=== PATIENT | male | born 1940 | race Caucasian/White ===

== ENCOUNTER 2019-05-07 17:48 | Inpatient (IN) ==
[2019-05-07 19:34] LABS: BASO# 0.04 X1000 (0.0-0.2); BASO% 0.2 % (0.0-0.8); EOS# 0.05 X1000 (0.0-0.7); EOS% 0.3 % (0.0-10.0); HEMATOCRIT 33.1 % (42.0-52.0); HEMOGLOBIN 10.4 g/dL (14.0-18.0); IMM GRAN# 0.17 X1000 (0.0-0.04); IMM GRAN% 1.1 % (0.0-0.5); LYMPH# 0.78 X1000 (1.2-3.4); LYMPH% 4.8 % (20.5-51.1); MCH 29.2 PG (27-31); MCHC 31.4 g/dL (33-37); MONO# 2.37 X1000 (0.11-0.59); MONO% 14.7 % (1.7-9.3); NEUT# 12.76 X1000 (1.4-6.5); NEUT% 78.9 % (42.2-75.2); PLT 117 X1000 (130-400); RBC 3.56 XMIL (4.7-6.1); RDW 15.2 % (11.5-14.5); WBC 16.17 X1000 (4.8-10.8)
[2019-05-07 20:16] LABS: ALBUMIN 3.7 g/dL (3.5-5.0); CREATININE 3.5 mg/dL (0.7-1.2); POTASSIUM 6.8 mmol/L (3.5-5.1); TOTAL BILIRUBIN 0.5 mg/dL (0.20-1.00); TOTAL PROTEIN 6.8 g/dL (6.3-8.3)
[2019-05-07] MEDS ORDERED: ALBUTEROL 0.5% INH CONC FOR HYPERKALEMIA INH ONE (20:36)
[2019-05-07] MEDS ORDERED: LACTULOSE PO ONE (20:37)
[2019-05-07] MEDS ORDERED: D50W 500 ML IV SCH (22:15)
[2019-05-07] MEDS ORDERED: HUMULIN R IV ONE (22:15)
[2019-05-07] MEDS ORDERED: D50W SYRINGE IV ONE (22:35)
[2019-05-07] MEDS ORDERED: HUMULIN R (PARKWAY) ONE (22:37)
[2019-05-08] MEDS ORDERED: TYLENOL PO PRN (00:36)
[2019-05-08] MEDS ORDERED: ZOFRAN IV PRN (00:36)
[2019-05-08] MEDS ORDERED: SODIUM BICARBONATE 8.4% 100 MEQ in D5W 1,000 ML IV SCH (00:45)
--- NOTE | 2019-05-08 00:48 | EKG Report ---
Test Performed on : 05/07/2019 9:31:23 PM Test Reason : emboli Blood Pressure : / mmHG Vent. Rate : 101 BPM Atrial Rate : 101 BPM P-R Int : 184 ms QRS Dur : 184 ms QT Int : 390 ms P-R-T Axes : 044 252 048 degrees QTc Int : 505 ms Sinus tachycardia. Right bundle branch block , plus right ventricular hypertrophy Septal infarct , age undetermined Abnormal ECG When compared with ECG of 02-DEC-2018 12:28, Vent. rate has increased BY 38 BPM Septal infarct is now present T wave inversion no longer evident in Lateral leads Unconfirmed Result
[2019-05-08 01:38] LABS: CALCIUM 8.9 mg/dL (8.8-10.2); CREATININE 3.7 mg/dL (0.7-1.2); POTASSIUM 5.9 mmol/L (3.5-5.1)
[2019-05-08 01:51] LABS: MAGNESIUM 2.6 mg/dL (1.5-2.7)
--- NOTE | 2019-05-08 01:55 | HISTORY AND PHYSICAL ---
REASON FOR ADMISSION: Abnormal labs. HISTORY OF PRESENT ILLNESS: Mr. Kevin Tinajero is a 79-year-old male with past medical history of coronary artery disease status post stent, hypertension, type 2 diabetes, hypothyroidism, who had some lab work done by Dr. Jordan a few days ago and it was noticeably abnormal. Based on that and the fact that Dr. Jordan was working in the ER, he told the patient to come to the ER so they could recheck his labs. When he did check his labs, he noticed that the patient's potassium was 6.8 and his creatinine had gone up from 2.1 at least to 3.5 with some mild leukocytosis. The patient admits to having poor oral intake of food and liquids for several months, culminating in a weight loss of 36 pounds. He denies any vomiting, diarrhea or blood loss. His urine output has not appreciably declined. He denies any hematuria or any other genitourinary complaints. Also of note, the patient is a very poor historian, so it was very difficult getting a very coherent history. I had to get some of the information from his nurse. The patient denies any cardiorespiratory complaints, but says he has been feeling weak. No PND, orthopnea. No increased leg swelling or abdominal distention. REVIEW OF SYSTEMS: Twelve system review was done. Positive findings per HPI. He denies any over- the-counter medication use. HOME MEDICATIONS: Include lisinopril 40 mg at bedtime, Tylenol #3, aspirin 81 mg daily, Coreg 3.125 mg b.i.d., Lantus 25 units q.a.m., levothyroxine 100 mcg q.a.m., sublingual nitroglycerin p.r.n., torsemide 10 mg 3 times a day, NovoLog as directed. SURGICAL HISTORY: Coronary artery stent placement and basal cell cancer excision from his nose. He denies any other surgery. FAMILY HISTORY: Notable for type 2 diabetes and hypertension, but no kidney disease. SOCIAL HISTORY: Does not smoke, drink, or use drugs. , lives with . LABORATORY WORK: White count 6,000, hemoglobin and hematocrit of 10 and 33, platelets 117,000, with 80% neutrophils, potassium 6.8, bicarb 21, anion gap is 10, BUN 56, creatinine 3.5. Glucose 119. Urinalysis is pending. Chest film is pending. EKG shows what appears to be a right bundle branch block with first-degree AV block. Sinus rhythm. No peaking of the T-waves or electrical activity consistent with hyperkalemia. PHYSICAL EXAMINATION: VITAL SIGNS: Blood pressure 159/60, heart rate 83, respirations 20, temperature is 97.7 degrees. He is 96% on room air. GENERAL:: Obese, elderly man, not in acute distress. He is alert and oriented to person, place, and time with some prompting because he is transiently confused intermittently. HEENT: Head is normocephalic, atraumatic. Eyes: INGA, EOMI. Intact, not pale. ENT: Dry oral mucosa. There is no cyanosis. No oropharyngeal exudates or erythema. NECK: Supple. No JVD or carotid bruit. No thyromegaly. The patient has mild decreased skin turgor. CHEST: Few bibasilar crepitations. Decreased air entry in the bases. No wheezes. CARDIOVASCULAR: A 3/6 ejection systolic murmur. No gallops. Rhythm is regular. ABDOMEN: Positive truncal obesity with no focal areas of tenderness. Bowel sounds are normal. RECTAL: Deferred. EXTREMITIES: The patient has 1+ pitting edema. No clubbing or peripheral cyanosis, has good distal pulse volumes which are regular and symmetrical. NEUROLOGICAL: Patient has tremors of his hands, but no gross focal deficits. SKIN: Intact. No breakdown lesion, erythema. MUSCULOSKELETAL: Grossly normal. ASSESSMENT: 1. Acute on chronic kidney failure, probably secondary to use of angiotensin-converting enzyme inhibitors or poor oral intake. Cannot rule out post obstructive etiologies. 2. Leukocytosis. Could be reactive leukocytosis versus occult urinary tract infection. Chest film and urinalysis pending. 3. Type 2 diabetes. 4. Mild metabolic encephalopathy. 5. Coronary artery disease. 6. Hypothyroidism. 7. Anemia, probably related to kidney disease. PLAN: Will consult Dr. Couch to follow and monitor patient. Retroperitoneal ultrasound was ordered to rule out obstructive uropathy. For now, we will just start patient on bicarb drip primarily to correct persistent hyperkalemia. We avoid any potentially nephrotoxic medication. Anemia workup has been ordered and will be followed. Await urinalysis, and chest films to rule out infective etiology. Withhold antibiotics for now. Follow daily labs and monitor fluid intake accordingly. cc: MD Yury Moeller MD
[2019-05-08] MEDS: HEPARIN SUBQ SCH ×2 (02:14→12:15)
[2019-05-08] MEDS: SODIUM BICARBONATE 8.4% 100 MEQ in D5W 1,000 ML IV SCH ×2 (06:51→17:36)
[2019-05-08] MEDS: SYNTHROID PO SCH (06:51)
[2019-05-08 09:05] LABS: UR CREAT RANDOM 129.4 mg/dL (14-26); UR PROT RANDOM 65.3 mg/dL
[2019-05-08 09:40] LABS: CALCIUM 8.1 mg/dL (8.8-10.2); CREATININE 3.5 mg/dL (0.7-1.2)
[2019-05-08 09:47] LABS: POTASSIUM 6.2 mmol/L (3.5-5.1)
[2019-05-08] MEDS ORDERED: HUMULIN R IV ONE (09:50)
[2019-05-08] MEDS ORDERED: ALBUTEROL 0.5% INH CONC FOR HYPERKALEMIA INH ONE (09:50)
[2019-05-08] MEDS ORDERED: D50W SYRINGE IV ONE (09:51)
[2019-05-08] MEDS: COREG PO SCH ×2 (09:52→20:31)
[2019-05-08] MEDS: ASPIRIN EC PO SCH (09:52)
[2019-05-08] MEDS: LANTUS INSULIN SUBQ SCH (09:53)
[2019-05-08] MEDS ORDERED: LOKELMA POWDER PACKET PO STA (10:23)
[2019-05-08] MEDS ORDERED: CALCIUM GLUCONATE 4.65 MEQ in NS 100 ML IV ONE (11:00)
--- NOTE | 2019-05-08 11:02 | Diag Imaging Result Doc PS360 ---
EXAM: CHEST-2 VIEWS 05/08/2019 HISTORY: leukocytosis dyspnea TECHNIQUE: PA and lateral chest COMMENT: There is no evidence of acute cardiac or pulmonary disease. Compared to 11/30/2018 there has been no significant change in the appearance of the chest. IMPRESSION: No acute disease. Electronically signed by John Jacobson 05/08/2019 10:59 AM
--- NOTE | 2019-05-08 11:24 | Diag Imaging Result Doc PS360 ---
EXAM: US RENAL 2 (RETROPER) COMPLETE INDICATION: PIERCE TECHNIQUE: COMPARISON: None. FINDINGS: The renal echotexture is somewhat increased, which is a nonspecific indicator of medical renal disease. There is a 4.8 cm cyst at the periphery of the right kidney. No solid renal mass is appreciated. The right kidney measures 9.9 cm and the left kidney measures 10.6 cm in the greatest longitudinal axes. Right renal cortex measures 0.6 cm and the left renal cortex measures 0.8 cm in thickness. The urinary bladder is largely nondistended and is grossly unremarkable, otherwise. IMPRESSION: 1.Mildly increased renal echotexture, which is a nonspecific indicator of medical renal disease. 2.Cystic appearing focus associated with the right renal cortex. Electronically signed by Gelacio Nash 05/08/2019 11:22 AM
--- NOTE | 2019-05-08 11:33 | EKG Report ---
Test Performed on : 05/08/2019 11:18:32 AM Test Reason : Hyperkalemia Blood Pressure : / mmHG Vent. Rate : 074 BPM Atrial Rate : 074 BPM P-R Int : 194 ms QRS Dur : 174 ms QT Int : 442 ms P-R-T Axes : -24 -89 076 degrees QTc Int : 490 ms Normal sinus rhythm. Left axis deviation Right bundle branch block Septal infarct (cited on or before 29-NOV-2018) Abnormal ECG When compared with ECG of 07-MAY-2019 21:31, (Unconfirmed) No significant change was found Unconfirmed Result
--- NOTE | 2019-05-08 15:06 | Diag Imaging Result Doc PS360 ---
EXAM: CT ABDOMEN/PELVIS W/O CONTRAST 05/08/2019 HISTORY: abnormal creatinine TECHNIQUE: This exam was performed using automated exposure control, adjustment of mA or kV according to patient size, and/or use of iterative reconstruction technique. COMMENT: The current study is compared with 07/26/2015. There are mild atelectatic changes present in the lower lobes posteriorly. There are small pleural effusions bilaterally which were not previously present. There are no apparent gallstones. The spleen and adrenal glands are not enlarged. The pancreas is slightly atrophic in appearance. The right renal pelvis is somewhat prominent, but this was also the case previously. There is hydronephrosis on the left which was not the case previously. There is bilateral nephrolithiasis with a stone on the right in the mid collecting system measuring over 16 mm. There is a 3 mm calculus in the lower pole on the left. There is an apparent cyst in the anterior right kidney measuring 2.4 cm in diameter. There is some stranding around the renal pelvis and ureter on the left. There is no evidence of ureteral stones however there are a number of small stones in the 2 to 3 mm size range layering dependently in the urinary bladder. This was not the case on the previous study.There are degenerative changes in the hips particularly the left hip and the sacroiliac joints. There is severe facet arthropathy on the right at the L5-S1 level and to a lesser extent on the left at L4-5. There is apparent spinal stenosis at the L3-4 level. No acute bony abnormalities are present. IMPRESSION: Left hydronephrosis. The possibility of a recently passed stone or stones on the left is suggested. Bilateral nephrolithiasis. Bibasilar atelectasis and effusions. Other nonacute findings as described above. Electronically signed by John Jacobson 05/08/2019 3:04 PM
--- NOTE | 2019-05-08 15:13 | PROVIDER PROGRESS NOTE ---
Progress Note Chief complaint: my back was hurting so I went to the doctor and had bad labs. HPI: Mr. Tinajero is A 79-year-old white male with a past medical history of coronary artery disease status post stent, hypertension, type two diabetes, kidney stones, and hypothyroidism. He started having a loss of appetite six months ago with a 35lb weight loss and has had general malaise for the past few weeks. He presented to an urgent care a few days ago with complaints of back pain thinking it might be another kidney stone. They started him on Augmentin tablets for complaints of burning on urination and trace blood in the urine. They called back yesterday with lab results that had a potassium of 6.8 and a creatinine of 2.1 which is around his baseline. He came to the emergency department for evaluation and has been admitted. His Creatinine today is 3.5. His white blood cell count is 16. He denies fever, chills, shortness of breath, nausea and vomiting, or chest pain. Past medical history: kidney stones, coronary artery disease status post stance, hypertension, type two diabetes, hypothyroidism, recent 35 pound weight loss. Past surgical history: coronary stent placement. Social history: lives at home with his . He is retired. He denies any tobacco, alcohol, or illicit drug use. Family history: positive for type two diabetes and hypertension. Allergies: toradol, levaquin, sulfa, z-pac, erythromycin base, Benadryl Home medications: Tylenol with codeine #3, aspirin, carvedilol, NovoLog, Lantus, levothyroxine, lisinopril, nitroglycerin, torsemide. Review of systems: neurological: denies altered mental status or loss of consciousness. Denies confusion. Eyes: denies blurriness, dryness, or change in visual acuity. ENT: denies tinnitus or change in hearing. Integumentary denies color change, rash, itching. Respiratory: denies shortness of breath or productive cough. Denies orthopnea. Cardiovascular: denies chest pain or palpitations. G.I.: denies nausea, vomiting, constipation, admits to weight loss from decreased appetite. : denies change in urine frequency or color. Admits to burning sensation. Endocrine: Denies excessive thirst and hunger. Musculoskeletal: denies increased weakness or extremity pain. Admits to lower back pain. Labs: WBC 16.17, hemoglobin 10.4, hematocrit 33.1, platelet count 117, sodium 132, potassium 6.2, chloride 102, carbon dioxide 19, anion gap 11, BUN 55, creatinine 3.5. urine studies: random creatinine 129.4, random proteins 65.3, random sodium 63. Intake 240, output one void not measured. Imaging: chest x-ray and pressure no acute disease. Renal ultrasound completed but pending. Physical exam: vitals. Temperature 98.2, pulse 82, respirations 19, blood pressure 121/54, 02 sat 93% on room air. General: obese elderly white male lying in bed in no acute distress. HEENT: atraumatic, normocephalic. Pupils equal and reactive, mucous membranes moist. Trachea midline. Skin: warm and dry. Neck: Supple, 8 cm JVD appreciated. Cardiovascular: S1,S2, S3, no murmur. Respiratory: clear bilaterally with diminished bases. Abdomen: obese, soft, nondistended, tender under umbilicus. Bowel sounds present. : non inspected. Extremities: Trace edema to bilateral lower extremities. Neurologic: alert, oriented to person and place. Assessment and plan: Acute on chronic kidney disease. FeNa score 1.29%. We will continue fluids, strict I/O, obtain renal imaging, and continue to monitor labs. Hyperkalemia. Treated by primary. Leukocytosis. Blood and urine cultures ordered. Abdominal tenderness. Will order an abdominal/pelvic CT.
[2019-05-08] MEDS: HUMALOG SUBQ SCH ×2 (17:36→20:32)
[2019-05-08] MEDS: LOKELMA POWDER PACKET PO SCH (17:37)
--- NOTE | 2019-05-08 18:49 | PROGRESS NOTE ---
DATE: 05/08/2019 SUBJECTIVE: This patient is resting comfortably in bed. He is not complaining of any specific pain at this moment. His potassium level was high again today in the morning, and I treated. I will repeat again the potassium in the afternoon. Nephrology department has been consulted for an acute on chronic kidney disease. OBJECTIVE: Vital Signs: Temperature 97.2 degrees, pulse 87, respiratory rate 18, blood pressure 122/49, oxygen saturation 95% on room air. HEENT: Head normocephalic, no trauma, PERRLA. Neck: Supple. No JVD. No masses. Central trachea. Chest: Clear to auscultation. No wheezing. No rales. Some crepitus at the bases. Abdomen: Soft, nontender, nondistended. No hepatosplenomegaly. Cardiovascular: Regular rhythm and rate. Systolic murmur. Extremities: 1+ pitting edema. No clubbing. No cyanosis. Neurological: This patient has some hand tremors, no focal deficits. He is answering my questions. LABORATORY DATA: Sodium 132, potassium 6.2, chloride 102, bicarbonate 19, BUN 55, creatinine 3.5, glucose 252, calcium 8.1. ASSESSMENT AND PLAN: 1. Acute on chronic kidney disease. We will stop all the nephrotoxic medications, Nephrology Department on board. We will follow their recommendations. 2. Leukocytosis. I do not have any source of infection. The urine culture has not been collected. We also requested a CT of the abdomen and pelvis. 3. Hyperkalemia. He has been treated. I will recheck his potassium in the afternoon. 4. Type 2 diabetes, stable. Continue with same management. 5. Possible mild metabolic encephalopathy. I do not have any family members at the bedside, but he is answering all my questions. 6. History of coronary artery disease. Aware. No chest pain. 7. Hypothyroidism. Continue with same management. 8. Anemia likely due to chronic kidney disease. cc: Kurt Lacy MD
[2019-05-08 21:27] LABS: URINE SOURCE CLEAN CATCH
[2019-05-08 21:31] LABS: BILIRUBIN URINE NEGATIVE (NEGATIVE); BLOOD URINE MODERATE (NEGATIVE); COLOR YELLOW; GLUCOSE URINE NEGATIVE (NEGATIVE); KETONE URINE NEGATIVE (NEGATIVE); LEUKOCYTES URINE MODERATE (NEGATIVE); NITRITE URINE NEGATIVE (NEGATIVE); PH URINE 5.5; PROTEIN URINE 50 mg/dL (NEGATIVE); SP GRAVITY URINE 1.015; TURBIDITY URINE HAZY (CLEAR); UR EPITHELIAL CELLS <10 /HPF (<10); URINE BACTERIA NEGATIVE /HPF; URINE WBC TNTC /HPF (<10); UROBILINOGEN URINE NORMAL (NORMAL)
[2019-05-09] MEDS: SYNTHROID PO SCH (06:22)
[2019-05-09] MEDS: HEPARIN SUBQ SCH ×2 (06:25→18:22)
[2019-05-09] MEDS: HUMALOG SUBQ SCH ×4 (07:42→21:28)
[2019-05-09 08:01] LABS: BASO# 0.02 X1000 (0.0-0.2); BASO% 0.2 % (0.0-0.8); EOS# 0.21 X1000 (0.0-0.7); HEMATOCRIT 30.1 % (42.0-52.0); HEMOGLOBIN 9.4 g/dL (14.0-18.0); IMM GRAN# 0.12 X1000 (0.0-0.04); IMM GRAN% 1.2 % (0.0-0.5); LYMPH# 0.99 X1000 (1.2-3.4); LYMPH% 9.7 % (20.5-51.1); MCH 28.7 PG (27-31); MCHC 31.2 g/dL (33-37); MCV 91.8 FL (81-99); MONO# 1.27 X1000 (0.11-0.59); MONO% 12.4 % (1.7-9.3); NEUT# 7.64 X1000 (1.4-6.5); NEUT% 74.5 % (42.2-75.2); PLT 118 X1000 (130-400); RBC 3.28 XMIL (4.7-6.1); RDW 14.9 % (11.5-14.5); WBC 10.25 X1000 (4.8-10.8)
[2019-05-09 08:14] LABS: ALBUMIN 3.1 g/dL (3.5-5.0); CALCIUM 8.7 mg/dL (8.8-10.2); CREATININE 3.3 mg/dL (0.7-1.2); POTASSIUM 5.7 mmol/L (3.5-5.1)
[2019-05-09 08:28] LABS: CHOLESTEROL 141 mg/dL (0-200); HDL 41 mg/dL (35-55); LDL 90 mg/dL; TRIGLYCERIDES 51 mg/dL (39-160); VLDL 10 mg/dL
[2019-05-09] MEDS: COREG PO SCH ×2 (09:44→21:28)
[2019-05-09] MEDS: ASPIRIN EC PO SCH (09:44)
[2019-05-09] MEDS: LANTUS INSULIN SUBQ SCH (09:44)
[2019-05-09] MEDS: LOKELMA POWDER PACKET PO SCH ×3 (12:02→18:22)
--- NOTE | 2019-05-09 16:44 | PROGRESS NOTE ---
DATE: 05/09/2019 SUBJECTIVE: The patient was sitting at the bedside when I evaluated this patient. His is at the bedside. We discussed all the results and also the CT scan findings, Nephrology Department has been following this patient. Certainly his BUN and creatinine are getting better and his potassium upon admission was 6.8, today 5.7. It is still high. I believe I want to keep him one more night and check the potassium in the morning again to play safe, and also today he will be evaluated by Urology Department due to his left hydronephrosis. I do not believe this patient will have any kind of procedure done, but I will wait for recommendations. In the meantime I will continue with the same management. I am still holding his lisinopril due to his acute kidney injury and also I have been holding his torsemide. OBJECTIVE: Vital Signs: Temperature 97.4 degrees, pulse 58, respiratory rate 18, blood pressure 121/68, oxygen saturation 99 on room air. HEENT: Head normocephalic, no trauma, PERRLA. Neck: Supple. No JVD. No masses. Central trachea. Chest: Clear to auscultation. No wheezing. No rales. Crepitus at the bases. Abdomen: Soft, nontender, nondistended. No hepatosplenomegaly. Cardiovascular: Regular rhythm and rate. Systolic murmur. Extremities: 1+ pitting edema. No clubbing. No cyanosis. Neurological: This patient has some hand tremors. No focal deficits. He is answering my questions. LABORATORY: WBC 10.2, hemoglobin 9.4, hematocrit 30.1, platelets 118,000. Sodium 137, potassium 5.7, chloride 98, bicarbonate 24, BUN 52, creatinine 3.3, glucose 133, calcium 8.7, phosphorus 5. ASSESSMENT AND PLAN: 1. Acute on chronic kidney disease. We have been stopping all the nephrotoxic medications. Nephrology Department following this patient closely. He came in with hyperkalemia. It looks like his kidney function is recovering slowly. He has left-sided hydronephrosis and he will be evaluated this afternoon by Urology Department. My plan is to keep this patient one more night and hopefully in the morning if the lab work is okay I will discharge this patient home. I do not believe he will have any kind of procedure by Urology Department, but I will wait for recommendations. 2. Leukocytosis. I do not have any source of infection. Urine culture has been negative so far. He is not on antibiotics and his leukocyte count is normal today, so likely this is reactive. 3. Hyperkalemia. Today, his potassium is 5.7. We will monitor this one more day. If tomorrow the potassium is about the same or lower than that I will send him home. 4. Type 2 diabetes, stable. Continue with same management. 5. Possible mild metabolic encephalopathy, it looks like he is at baseline right now. He is answering all my questions and following commands. 6. History of coronary artery disease. No chest pain at this moment. 7. Hypothyroidism. Continue with same management. 8. Anemia, likely chronic due to kidney disease, likely. cc: Kurt Lacy MD
--- NOTE | 2019-05-09 21:16 | CONSULTATION ---
DATE OF CONSULTATION: 05/09/2019 CONSULTING PHYSICIAN: Dr. Muniz. REASON FOR CONSULTATION: Left hydronephrosis, kidney stones. HISTORY OF PRESENT ILLNESS: A 79-year-old male with previous history of urolithiasis, who was admitted on 05/08/2019 secondary to abnormal labs with creatinine up to 3.5 and potassium of 6.8. He reports previous history of kidney stones. He has always been able to pass his stones and has not had any intervention in the past. He has not had stones analyzed. He reports transient groin and lower abdominal pain with urgency and dribbling, followed by significant improvement in symptoms. When he was admitted, he had renal ultrasound on 05/08/2019 secondary to acute kidney injury, followed by CT scan on 05/08/2019, which revealed a 16 mm right renal stone without obstruction, a 3 mm left renal stone without obstruction, right renal cyst, left hydronephrosis with stranding around the renal pelvis consistent with a recent irritation of the left urinary tract. The patient currently denies urinary symptoms. He states he is ready to be discharged. Of note, he did have a potassium of 5.7 today. PAST MEDICAL HISTORY: 1. Coronary artery disease. 2. Hypertension. 3. Diabetes. 4. Hypothyroidism. PAST SURGICAL HISTORY: 1. Percutaneous coronary intervention. 2. Basal cell excision. ALLERGIES: Toradol, levofloxacin. FAMILY HISTORY: Negative for malignancies. Negative for urolithiasis. SOCIAL HISTORY: Denies tobacco, alcohol, or illicit drug use. REVIEW OF SYSTEMS: Reviewed and 12 systems negative with the exception of HPI. PHYSICAL EXAMINATION: Vital signs: T 97.4 degrees, P 58, BP 121/68. General: No acute distress. HEENT: Normocephalic, atraumatic. Cardiovascular: Regular rhythm. Pulmonary: Bilateral breath sounds. Abdomen: Protuberant, nontender to palpation. : Bladder nontender to palpation. Normal external male genitalia with patent meatus. Penile shaft is without lesions. Testes descended bilaterally. Rectal: Perineum has structural integrity intact. Digital rectal examination is deferred at the time of this consultation. PERTINENT LABS: White cell count is 10,000. Creatinine is 3.3, down from 3.5. PERTINENT IMAGES: Renal ultrasound and CT scan per HPI. ASSESSMENT: 79-year-old male with history of urolithiasis, who was admitted with elevated creatinine with acute kidney injury and elevated potassium. On imaging, he has evidence of mild left hydronephrosis without definite evidence of obstruction. He also has a large right renal stone and a small left renal stone. I have discussed with the patient and his family who is present at bedside that his hydronephrosis was likely due to the stone that he passed, given his symptoms. We discussed that hydronephrosis could also be due to other genitourinary etiologies, including possibly genitourinary malignancy. Given his electrolyte abnormalities, we discussed that it is reasonable to repeat his urinalysis and perform a renal ultrasound at an outpatient setting after he is discharged to document resolution of hydronephrosis. I have also discussed with him that he would benefit from having the 16 mm right renal stone treated with extracorporeal shockwave lithotripsy versus ureteroscopy. Obviously, he will not have a chance of passing it spontaneously. The patient wants to think about his options. PLAN: 1. No urologic intervention needed at this point. 2. I advised that they can follow up with me in the office in 2 to 3 weeks, at which time we can check his urinalysis and perform KUB, as well as discuss getting a renal ultrasound to document resolution of hydronephrosis and possibly address the right renal stones. Thank you for the consultation. cc: MD MADELINE Reyes
--- NOTE | 2019-05-09 21:39 | NEPHROLOGY PROGRESS NOTE ---
DATE: 05/09/2019 SUBJECTIVE: His pain is resolved. He is ambulatory and eating. OBJECTIVE: Blood pressure 121/68, heart rate 58, respiration 18, afebrile. Generally, no acute distress. Skin is warm and dry. Neck veins are not distended. Heart is regular. Lungs are equal. Abdomen is obese and soft. Bowel sounds are present.Extremities: Minimal edema. No clubbing or cyanosis. IMPRESSION AND PLAN: Chronic kidney disease. Kidney function is roughly stable, though, creatinine has perhaps trended down over the last 24 hours. He has no retained stone that is visible on the CT. His potassium is improving. From my perspective, okay for discharge. I would complete treatment with Lokelma 10 g 3 times a day for 2 days. We can check labs on Sunday and follow him in the office in 2 to 4 weeks. Likely, chronic kidney disease. cc: Nitesh Couch MD
[2019-05-10] MEDS: HUMALOG SUBQ SCH (06:04)
[2019-05-10] MEDS: HEPARIN SUBQ SCH (06:04)
[2019-05-10] MEDS: SYNTHROID PO SCH (06:23)
[2019-05-10 08:21] LABS: BASO# 0.03 X1000 (0.0-0.2); BASO% 0.3 % (0.0-0.8); HEMATOCRIT 29.1 % (42.0-52.0); HEMOGLOBIN 9.2 g/dL (14.0-18.0); LYMPH# 0.94 X1000 (1.2-3.4); LYMPH% 9.3 % (20.5-51.1); MCH 29.1 PG (27-31); MCHC 31.6 g/dL (33-37); MCV 92.1 FL (81-99); MONO# 1.12 X1000 (0.11-0.59); MONO% 11.1 % (1.7-9.3); NEUT# 7.58 X1000 (1.4-6.5); NEUT% 75.3 % (42.2-75.2); PLT 112 X1000 (130-400); RBC 3.16 XMIL (4.7-6.1); RDW 14.5 % (11.5-14.5); WBC 10.07 X1000 (4.8-10.8)
[2019-05-10 08:55] LABS: ALBUMIN 2.9 g/dL (3.5-5.0); CALCIUM 8.7 mg/dL (8.8-10.2); CREATININE 2.7 mg/dL (0.7-1.2); PHOSPHORUS 4.8 mg/dL (2.7-4.5)
[2019-05-10] MEDS: LANTUS INSULIN SUBQ SCH (09:00)
[2019-05-10] MEDS: ASPIRIN EC PO SCH (09:00)
[2019-05-10] MEDS: COREG PO SCH (09:00)
[2019-05-10 09:04] LABS: ANISOCYTOSIS 1+; EOS 5 % (1-10); LARGE PLATELETS 1+; LYMPHS 11 % (21-51); MONO 13 % (1-9); SEGS 71 % (42-75)
[2019-05-10 09:06] VITALS: BP 132/51
--- NOTE | 2019-05-10 09:28 | PROVIDER DOCUMENTATION ---
This chart was entered by Liz Brown Scribe, acting as scribe for Yury Jordan MD. HPI-General Adult - General Chief Complaint: Abnormal Lab[s] Stated Complaint: ABNORMAL LABS Time Seen by Provider: 05/07/19 18:34 Source: patient, family Allergies/Adverse Reactions: Patient Allergies Allergy/AdvReac Type Severity Reaction Status Date / Time ketorolac tromethamine * Allergy Unknown Verified 05/07/19 18:24 [From Toradol] levofloxacin [From Levaquin] Allergy Unknown Verified 05/07/19 18:24 Sulfa (Sulfonamide Allergy Unknown Verified 05/07/19 18:24 Antibiotics) azithromycin AdvReac Intermediate NAUSEA/VOMI Verified 05/07/19 18:24 [From Zithromax Z-Bi] TING erythromycin base AdvReac Intermediate NAUSEA/VOMI Verified 05/07/19 18:24 [Erythromycin Base] TING diphenhydramine AdvReac Hallucinati Verified 05/07/19 18:24 [From Benadryl] on Home Medications: Home Medication List Medication Instructions Recorded Confirmed Last Taken Type Levothyroxine 100 mcg PO QAM 07/29/12 05/07/19 1 Day Ago History ~11/29/18 100 mcg Carvedilol [Coreg] 1 tab PO BID 07/26/15 05/07/19 1 Day Ago History ~11/29/18 Nitroglycerin [Nitrostat] 0.4 mg SL PRN PRN 07/26/15 05/07/19 07/05/17 History Insulin Glargine [Lantus] 25 units SQ QAM 08/08/16 05/07/19 1 Day Ago History ~11/29/18 Acetaminophen with Codeine 1 tab PO QHS 11/29/18 05/07/19 Unknown History [Tylenol with Codeine #3] Aspirin [Aspir-Low] 81 mg PO DAILY 11/29/18 05/07/19 1 Day Ago History ~11/29/18 Insulin Aspart [Novolog] 1 dose SQ DIRECTED 11/29/18 05/07/19 Unknown History Sodium Zirconium Powder Pkt 10 gm PO TID #2 packet 05/10/19 Unknown Rx [Lokelma Powder Packet] - History of Present Illness -Gen Adult Nature of Presenting Problems: pt is a 79 yr old male presenting with complaint of abnormal labs, after being seen at [facility] yesterday, abdominal pain, painful urination and nausea. pt hx of kidney disease Location of Pain/Injury: reports: abdomen Pain Radiation: reports: no radiation Quality of Pain: reports: aching Severity: reports: moderate Onset/Duration: reports: gradual Timing: reports: getting worse Context/Activities at Onset: reports: light activity Modifying Factors: improves with: nothing Associated Symptoms: reports: genitourinary problems, nausea. denies: fever/chi lls Similar Symptoms Previously?: Yes Recently seen or treated by another doctor?: Yes (seen at [facility] yesterday) Review of Systems - Adult - REVIEW OF SYSTEMS - ADULT Constitutional: denies: fever, fatique Eyes: reports: no symptoms reported Ears, Nose, Mouth & Throat: reports: no symptoms reported Cardiovascular: reports: no symptoms reported Respiratory: reports: shortness of breath Gastrointestinal: reports: abdominal pain, nausea. denies: diarrhea, vomiting Genitourinary: reports: dysuria Musculoskeletal: reports: no symptoms reported Integumentary: reports: no symptoms reported Neurological: denies: dizziness/vertigo, headache/migraines Psychiatric: reports: no symptoms reported Endocrine: reports: no symptoms reported Hematologic/Lymphatic: reports: no symptoms reported Allergic/Immunologic: reports: no symptoms reported All Other Systems: Reviewed and Negative Past History - Adult - PAST MEDICAL HISTORY-ADULT Review of Records: reports: Old Records Reviewed, Nursing Assessment Review, Medications Reviewed, Social history reviewed & non-contributory. Major Childhood Illnesses: reports: denies history Cardiovascular: reports: HTN, NM Respiratory: reports: denies history Gastrointestinal: reports: denies history Obstetrical/Gynecological: reports: denies history Genitourinary: reports: kidney disease, kidney stones Musculoskeletal: reports: denies history Neurological: reports: denies history Endocrine/Immune: reports: adrenal insufficiency, Diabetes, thyroid disorder Other Conditions: reports: denies history - PRIOR SURGERIES/PROCEDURES Surgical/Procedure History: reports: cardiac stent, orthopedic (extremity), other - IMMUNIZATION STATUS Childhood Immunizations: See Nurse Assessment Flu Vaccine: See Nurse Assessment - FAMILY HISTORY Family History: reviewed, not pertinent - SOCIAL HISTORY Living Situation: family Physical Exam-General - PHYSICAL EXAM-ADULT Initial Vital Signs Reviewed: Yes - CONSTITUTIONAL General Appearance: appears well, alert, no apparent distress - EYES Eyes: PERRL/EOMI, pink conjunctivae - HEAD, EARS, NOSE, MOUTH & THROAT HENMT: normocephalic/atraumatic, moist mucous membranes, normal ENT inspection - NECK Neck: non-tender, full range of motion, supple, C-spine tenderness. negative: trachial deviation - RESPIRATORY Respiratory: chest non-tender, lungs clear - CARDIOVASCULAR Cardiovascular: normal peripheral pulses, regular rate, rhythm. negative: no edema - GASTROINTESTINAL (ABDOMEN) Abdominal Exam: normal bowel sounds, non tender, soft - LYMPHATIC Lymphatic: no adenopathy - MUSCULOSKELETAL Back Exam: normal inspection, no CVA tenderness, no vertebral tenderness Extremity: swelling - SKIN Integumentary: normal color, normal turgor - NEUROLOGIC Neurologic: grossly normal - PSYCHIATRIC Psych/Mental Status: oriented x 3 Progress - PLAN OF CARE/RESULTS Progress/Plan/Lab Results: Vital Signs - 8 hr 05/07/19 18:02 Temperature 97.7 F Pulse Rate 83 Respiratory Rate 20 Blood Pressure 159/62 O2 Sat by Pulse Oximetry 96 Laboratory Results - last 24 hr 05/07/19 05/07/19 19:09 19:09 WBC 16.17 H RBC 3.56 L Hgb 10.4 L Hct 33.1 L MCV 93.0 MCH 29.2 MCHC 31.4 L RDW Std Deviation 15.2 H Plt Count 117 L MPV Not Reportable Immature Gran % (Auto) 1.1 H Neut % (Auto) 78.9 H Lymph % (Auto) 4.8 L [place] % (Auto) 14.7 H Eos % (Auto) 0.3 Baso % (Auto) 0.2 Immature Gran # (Auto) 0.17 H Neut # (Auto) 12.76 H Lymph # (Auto) 0.78 L [place] # (Auto) 2.37 H Eos # (Auto) 0.05 Baso # (Auto) 0.04 Estimated GFR/1.73 m2 17 Orders Category Date Time Status CBC WITH ELECTRONIC DIFF [HEME] Stat Lab 05/07/19 19:09 Completed CMP [COMPREHENSIVE METABOLIC PANEL] [CHEM] Stat Lab 05/07/19 19:09 Results Result Diagrams: 05/10/19 08:00 05/10/19 08:00 - EKG 1 Time of EKG reading by physician:: 21:31 EKG Read and Signed by:: Yury Jordan EKG Interpretation (*Must complete 3 of following elements*): Abnormal (septal infarct-age undetermined) Rate: 101 Rhythm: sinus tach QRS: RBB, LVH Departure - Departure Date of Disposition Decision: 05/07/19 Time of Disposition Decision: 23:55 DIAGNOSIS: Hyperkalemia, Chronic kidney disease (CKD), Delusional disorder Disposition: ADMITTED INPATIENT 09 Certified Medical Emergency: Emergent Condition: Stable - Critical Care Note This patient required my direct & personal management of CC.: Yes Attestation - Physician/ NADINE Attestation Patient care was provided by Advanced Practice Provider:: No The physician spent face to face time with patient:: Yes Advanced Practice Provider documentation review:: Supervising physician onsite and consulted in the evaluation and care of this patient. The physician did have a face to face encounter with the patient. This chart was documented by the indicated scribe, (Liz Brown, Scribrolando) and accurately reflects the services I performed and decisions made by me, Yury Jordan MD, as attested by the provider's signature.
--- NOTE | 2019-05-10 20:56 | DISCHARGE SUMMARY ---
ADMISSION DATE: 05/07/2019 DISCHARGE DATE: 05/10/2019 DISCHARGE DIAGNOSES: 1. Acute on chronic kidney disease. 2. Leukocytosis with no source of infection. 3. Hyperkalemia, resolved. 4. Type 2 diabetes. 5. Mild metabolic encephalopathy, resolved. 6. History of coronary artery disease. 7. Hypothyroidism. 8. Anemia. PROCEDURES PERFORMED: 1. Chest x-ray dated 05/08/2019, impression: No acute disease. 2. Renal ultrasound dated 05/08/2019, impression: Mildly decreased renal echotexture which is nonspecific indicator of medical renal disease, cystic appearing focus associated with the right renal cortex. 3. Abdomen and pelvis CT scan dated 05/08/2019, impression: Left hydronephrosis, the possibility of a recent passed stone or stones on the left is suggested, bilateral nephrolithiasis, bibasilar atelectasis and effusions, other nonacute findings. CONSULT: Nephrology Department, Dr. Couch. Urology Department, Dr. Caldwell. HOSPITAL COURSE: A 79-year-old male with a past medical history of coronary artery disease status post stent placement, hypertension, diabetes, hypothyroidism, CKD, who had some lab work done by Dr. Jordan a few days ago and was noticeably abnormal, based on that and the fact that Dr. Jordan was working in the ER, he told the patient to come to the emergency department, so they could recheck his labs, when he came to the emergency department, his potassium level was 6.8 and his creatinine went up from 2.1 to 3.5 with some mild leukocytosis. The patient admitted to having some poor oral intake of food and liquids for several months, and he has been also losing weight, around 36 pounds. He denied any vomiting, diarrhea, or blood loss. His urine output has no appreciable decline, he denies any hematuria, other genitourinary complaints. Also, the patient was a very poor historian, he was not complaining of any cardiac respiratory issues, he has been complaining of some weakness, no abdominal distention or lower extremity swelling, this patient has been hospitalized on the medical floor. We did stop his lisinopril and torsemide which are potentially nephrotoxic, we did a CT of the abdomen and pelvis and also we did a renal ultrasound. Nephrology Department was consulted and they evaluated this patient and they continued with same management that we suggested from the beginning. We treated his potassium multiple times, nephrology department has suggested to put this patient on Lokelma for a couple days, 3 times a day, and we did, CT scan showed left hydronephrosis but no evidence of obstruction, it is possible that this patient had a stone and then the stone just moved and passed. Urology Department evaluated this patient. They did not recommend any intervention at this moment, but they want to follow this patient up as an outpatient in 2 to 3 weeks, Nephrology Department also has suggested to keep an eye on this patient and get new lab work this Sunday, in 2 days, so I wrote a laboratory order for BMP for this Sunday, he will be discharged today. He is feeling much better. His BUN and creatinine as well as the potassium level are improving, I discussed the case with the patient and the which was at the bedside. I told them that I have been holding for now the torsemide and lisinopril since his kidney dysfunction is still above baseline. They need to get the BMP done in 2 days and contact his primary care doctor, Dr. Jordan, in 3 to 4 days and discussed the possibility of reassuming this treatment for him. They seem to understand and proceed. At the time of discharge, this patient was in a stable medical condition. He was tolerating p.o., no focal weakness. PHYSICAL EXAMINATION: Temperature 98.5 degrees, pulse 58, respiratory rate 20, blood pressure 132/51, oxygen saturation 98 on room air. HEENT: Head normocephalic, no trauma. PERRLA. Neck: Supple. No JVD. No masses. Central trachea. Chest: Clear to auscultation, some crepitus at the bases, scattered, mild. Abdomen: Soft, nontender, nondistended. No hepatosplenomegaly. Cardiovascular: RRR. Systolic murmur. Extremities: Trace to 1+ pitting edema. No clubbing. No cyanosis. Neurological: The patient has some hand tremors, but no focal deficits. He is answering all my questions. LABORATORY: WBC 10, hemoglobin 9.2, hematocrit 29.1, platelets 112,000, sodium 135, potassium chloride 101, bicarbonate 22, BUN 51, creatinine 2.7, glucose 142, calcium 8.7, phosphorus 4.8. DISCHARGE MEDICATIONS: Acetaminophen with Codeine 1 tablet p.o. at bedtime, aspirin 81 mg p.o. daily, carvedilol 3.125 b.i.d., Lantus 25 units subcutaneously q.a.m., insulin aspart as directed, levothyroxine 100 mcg p.o. q.a.m., nitroglycerin 0.4 mg sublingual as needed, and Lokelma powder 10 mg p.o. x 2 doses, today in the afternoon and night. TIME SPENT: Time discharging this patient and explaining to the and the patient the follow- up treatment, the reason why we have been holding medications, and results of the studies around 25 minutes. cc: Kurt Lacy MD
== END 2019-05-10 10:41 | disposition home or self-care (01) | DRG 640 ==
LOC: P.ED 17:48 → SUATTDRO 23:18 → 3N 23:18
PROVIDERS: ATTEND Internal Medicine